=== PATIENT | female | born 2000 | race Caucasian/White ===

== ENCOUNTER 2024-11-06 20:58 | Emergency (ER) | payer MEDICAID, SELFPAY ==
[2024-11-07] MEDS ORDERED: diphenhydrAMINE 50 MG/ML VIAL ONE (01:31)
[2024-11-07] MEDS ORDERED: Droperidol 5 MG/2 ML VIAL ONE (01:31)
[2024-11-07 01:59] LABS: #Basophils 0.05 10x3/uL (0.0-0.2); #Eosinophils 0.06 10x3/uL (0.0-0.5); #Neutrophils 7.06 10x3/uL (1.5-8.4); %Basophils 0.4 % (0.0-2.0); %Eosinophils 0.5 % (0.0-6.0); %Lymphocytes 24.6 % (18.0-47.0); %Monocytes 10.8 % (0.0-10.0); %Neutrophils 63.4 % (40.0-75.0); Hematocrit 46.4 % (34.9-44.5); Hemoglobin 14.6 g/dL (12.0-15.5); Mean Corpuscular HGB CONC 31.5 g/dL (32.0-36.0); Mean Corpuscular Hemoglobin 25.3 pg (27.0-33.0); Mean Corpuscular Volume 80.4 fL (81.6-98.3); Mean Platelet Volume 12.4 fL (7.4-10.4); Platelet Count 339 10x3/uL (150-450); Red Blood Cell (RBC) Count 5.77 10x6/uL (3.90-5.03); White Blood Cell (WBC) Count 11.14 10x3/uL (3.5-10.5)
[2024-11-07 02:06] LABS: BHCG - Serum Negative (NEGATIVE); Pregs Control Background? CLEAR/WHITE (CLR/WHITE); Pregs Control Bar Appear? YES (CONTROL BAR)
[2024-11-07 02:15] LABS: ALT (SGPT) 40 U/L (Less than 34); AST (SGOT) 34 U/L (11-34); Albumin 4.6 g/dL (3.1-4.5); Alkaline Phosphatase 47 U/L (40-110); Anion Gap 18 mmol/L (10-20); BUN (Urea Nitrogen) 12 mg/dL (7.0-18.7); Bilirubin, Total 1.4 mg/dL (0.3-1.2); Calc. Creatinine Clearance 0 mL/min (70-130); Calcium 9.7 mg/dL (7.8-10.44); Carbon Dioxide 33 mmol/L (22-29); Chloride 87 mmol/L (98-107); Estimated GFR 124; Globulin 3.9 g/dL (2.4-3.5); Glucose 90 mg/dL (70-105); Lipase 20 U/L (8-78); Protein, Total 8.5 g/dL (6.0-8.3); Sodium 136 mmol/L (136-145)
[2024-11-07] MEDS ORDERED: Potassium Bicarbonate/Cit Ac 20 MEQ TAB ONE (02:19)
[2024-11-07 02:20] LABS: Critical Call Chemistry ICU.MDB@0220; Potassium 2.4 mmol/L (3.5-5.1)
== END 2024-11-07 03:27 | disposition home or self-care (01) ==
LOC: CSHERS 20:58
DX: E87.6 Hypokalemia (principal); R11.2 Nausea with vomiting, unspecified; F17.290 Nicotine dependence, other tobacco product, uncomplicated
CPT/HCPCS: 80053; 83690; 84703; 85025; 96361; 96374; 96375; J1200; J1790